=== PATIENT | male | born 2000 | race Caucasian/White ===

== ENCOUNTER 2020-05-31 13:27 | Outpatient (CLI) | payer BC ==
[2020-06-02 12:41] LABS: HEPATITIS B SURFACE ANTIGEN NON-REACTIVE (NON-REACTIVE)
[2020-06-02 12:55] LABS: HEPATITIS C ANTIBODY NON-REACTIVE (NON-REACTIVE)
[2020-06-02 12:57] LABS: HEPATITIS B CORE AB TOTAL NON-REACTIVE (NON-REACTIVE)
[2020-06-02 14:16] LABS: HIV AG/AB 4TH GEN NON-REACTIVE (NON-REACTIVE)
[2020-06-03 13:11] LABS: HSV 2 IGG TYPE SPECIFIC AB <0.90 index
== END 2020-05-31 13:28 | disposition home or self-care (01) ==
LOC: LAB.S 13:27
PROVIDERS: ATTEND Physician Assistant
DX: Z11.3 Encounter for screening for infections with a predominantly sexual mode of transmission (principal)
CPT/HCPCS: 36415; 81599; 86317; 86592; 86695; 86696; 86704; 86803; 87340; 87389; 87491; 87591; 87661

== ENCOUNTER 2021-02-07 08:00 | Outpatient (CLI) | payer BC | END 2021-02-07 23:59 | LOC: LAB.N 08:00 | PROVIDERS: ATTEND Family Medicine | DX: R05.1 Acute cough (principal); Z20.822 Contact with and (suspected) exposure to COVID-19 | CPT/HCPCS: 87275; 87276 ==

== ENCOUNTER 2021-06-29 08:00 | Outpatient (CLI) | payer BC | END 2021-06-29 14:14 | disposition home or self-care (01) | LOC: LAB.N 08:00 | PROVIDERS: ATTEND Physician Assistant | DX: J02.9 Acute pharyngitis, unspecified (principal) | CPT/HCPCS: 87070 ==

== ENCOUNTER → 2021-06-30 | Outpatient (CLI) | payer BC | LOC: LAB.N 08:00 | PROVIDERS: ATTEND Family Medicine | DX: Z11.3 Encounter for screening for infections with a predominantly sexual mode of transmission (principal) ==

== ENCOUNTER 2021-07-02 07:49 | Outpatient (CLI) | payer BC ==
[2021-06-30 22:41] LABS: CHLAMYDIA TRACHOMATIS DNA NEGATIVE (NEGATIVE); NEISSERIA GONORRHOEAE DNA NEGATIVE (NEGATIVE)
[2021-07-03 05:13] LABS: HCV AB <0.1 s/co ratio (0.0-0.9); HIV SCREEN 4TH GENERATION Non Reactive (Non Reactive); HSV 2 IGG TYPE SPEC <0.91 index (0.00-0.90); RPR Non Reactive (Non Reactive)
[2021-07-03 14:08] LABS: HSV IGM I/II COMBINATION <0.91 Ratio (0.00-0.90)
== END 2021-07-02 07:50 | disposition home or self-care (01) ==
LOC: LAB.N 07:49
PROVIDERS: ATTEND Family Medicine
DX: Z11.3 Encounter for screening for infections with a predominantly sexual mode of transmission (principal)
CPT/HCPCS: 36415; 86592; 86695; 86696; 86803; 87389; 87491; 87591; 87661